=== PATIENT | male | born 1975 | race Caucasian/White ===

== ENCOUNTER 2024-04-11 08:24 | Outpatient (CLI) | payer OTHER | END 2024-04-11 23:59 | disposition home or self-care (01) | LOC: MRI02 08:24 | PROVIDERS: ATTEND Family Medicine | DX: M75.101 Unspecified rotator cuff tear or rupture of right shoulder, not specified as traumatic (principal); M25.511 Pain in right shoulder; M25.411 Effusion, right shoulder; M65.811 Other synovitis and tenosynovitis, right shoulder | CPT/HCPCS: 73221 ==